=== PATIENT | male | born 1960 | race Two or more races ===

== ENCOUNTER 2024-06-13 11:37 | Emergency (ER) | payer MEDICARE, MEDICAID ==
[~2024-06-13] VITALS: Ht 170.2 cm; Wt 70.0 kg
[2024-06-13 13:02] VITALS: BP 119/68; PULSE 75; RESP 16; TEMP 98.5; O2SAT 97
[2024-06-13] MEDS ORDERED: MECL-302 PO (13:35)
== END 2024-06-13 14:00 | disposition home or self-care (01) ==
LOC: ER 11:38
DX: R42 Dizziness and giddiness (principal)
CPT/HCPCS: 99282

== ENCOUNTER 2024-07-13 05:46 | Emergency (ER) | payer MEDICARE, MEDICAID ==
[~2024-07-13] VITALS: Ht 170.2 cm; Wt 64.2 kg
[~2024-07-13 05:46] MED LIST: MECL-302 PO
[2024-07-13 05:47] VITALS: TEMP 97.3
[2024-07-13] MEDS ORDERED: IBUP-1984 PO (07:12)
[2024-07-13] MEDS ORDERED: TRAM50TA2 PO (07:12)
[2024-07-13 07:28] VITALS: BP 136/87; PULSE 64; RESP 15; O2SAT 97
== END 2024-07-13 07:31 | disposition home or self-care (01) ==
LOC: ER 05:47
DX: M54.2 Cervicalgia (principal); G89.29 Other chronic pain; G43.909 Migraine, unspecified, not intractable, without status migrainosus
CPT/HCPCS: 72040; 99283

== ENCOUNTER 2025-05-24 01:23 | Emergency (ER) | payer MEDICAID, MEDICARE ==
[~2025-05-24] VITALS: Ht 170.2 cm; Wt 65.0 kg
[~2025-05-24 01:23] MED LIST changes: +CARB-491 PO; -MECL-302 PO
[2025-05-24 01:34] VITALS: BP 145/65; PULSE 85; O2SAT 97
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
[2025-05-24 02:41] VITALS: RESP 16
[2025-05-24] MEDS: ketorolac trometh 15mg/ml vial 15 MG/ML ML IM ONE (02:41)
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
[2025-05-24] MEDS ORDERED: IBUP-1984 PO (03:20)
[2025-05-24 03:21] VITALS: TEMP 97.5
== END 2025-05-24 03:22 | disposition home or self-care (01) ==
LOC: ER 01:23
DX: M43.6 Torticollis (principal); Z79.899 Other long term (current) drug therapy
CPT/HCPCS: 72040; 96372; 99283; J1885

== ENCOUNTER 2025-05-31 07:32 | Emergency (ER) | payer MEDICARE ==
[~2025-05-31] VITALS: Ht 170.2 cm; Wt 67.0 kg
[~2025-05-31 07:32] MED LIST changes: +IBUP-1984 PO
[2025-05-31 07:49] VITALS: TEMP 98
--- NOTE | 2025-05-31 07:52 | Physician Documentation ---
History of Present Illness ~ General Chief Complaint: Cold, cough & congestion Stated Complaint: FEVER Time Seen by MD: 07:42 Source: patient Mode of Arrival: EMS History of Present Illness Initial Comments CC: Fever HPI: The patient is a 70-year-old male with history of Parkinson's disease brought in by ambulance to the ED for evaluation of fever and body aches for the past two days. The patient also reports of having a dry cough with no phlegm and dysuria. He took Tylenol a a few hours prior to arrival. Denies any chest pain or shortness of breath. Positive sore throat. No urinary symptoms no abdominal pain. No neck pain or stiffness. Took Tylenol early this morning no foreign travel. No sick contacts. He has a one room he lives with. No diabetes or immunosuppression ROS: Constitutional: Positive for fever and body aches. HENT: Negative for sore throat and rhinorrhea. Eyes: Negative for pain and redness. Respiratory: Positive for cough. Negative for shortness a breath. Cardiovascular: Negative for chest pain and palpitations. Gastrointestinal: Negative for nausea and vomiting. . Genitourinary: Negative for dysuria and hematuria. Musculoskeletal: Negative for acute back pain and acute neck pain. Skin: Negative for rash and pruritus. Neurological: Negative for acute numbness or weakness. PMH: Parkinson's disease Social history: [facility] Medication Reconciliation Allergies: Coded Allergies: No Known Allergies (Unverified , 05/31/25) Scheduled Azithromycin (Zithromax), 1 TAB PO UD Oseltamivir Phosphate (Tamiflu), 1 CAP PO Q12H Past Medical History Smoking Status: Unknown if ever smoked Physical Exam Physical Exam Vital Signs: Temperature: 98.0, Source: Oral, Heart Rate: 83, Respiratory Rate: 16, BP: 130/82, Pulse Oximetry: 94, Weight: 67.000 Oxygen Flow Rate: 0 Physical Exam General: Awake no distress. Verbal Head: No trauma Eyes: Nl lids Nl conjunctiva. No eye discharge ENT: Mild erythema to oropharynx. Nl. Lips Nl. No lesions Neck: Supple. No JVD. No visible mass Resp: Rate normal. No respiratory distress. No retractions. Normal air flow. No wheezes, rhonchi, or rales. Heart: Regular rhythm. No murmur. No rub Abdomen: Soft. Nontender. No guarding. No rebound Musc/skeletal: No calf or popliteal tenderness. No edema Skin: No rash. No petechiae. Not diaphoretic Neuro: Alert, oriented. Normal speech normal gross sensory and motor exams Progress Progress Note Chest x ray interpreted by me: Findings: Normal mediastinum, No pneumothorax, No CM, no infiltrate Impression: Normal EKG: Rate/Rhythm: Normal Sinus Rhythm QRS, ST, T-waves: No changes consistent w/ acute ischemia Impression: No evidence of ischemia or arrhythmia Re-evaluate 915 the patient states he is ready to get out of here. Normal vital signs. Informed of diagnosis plan and indications to return we will prescribe Tamiflu Results/Orders Results/Orders Orders - EARNEST MCCOY MD Electrocardiogram (05/31/25 07:47) Chest,Single View (05/31/25 07:47) Covid19 Binax Poc Result Entry (05/31/25 07:47) Completed Orders - EARNEST MCCOY MD Electrocardiogram (05/31/25 07:47) Cbc/Diff (05/31/25 07:47) Chest,Single View (05/31/25 07:47) BMP (05/31/25 07:47) Normal Saline 1000ml (0.9% Sodium Chlori (05/31/25 07:50) Influenza Type A&B Rapid Test (05/31/25 07:47) Ua W/Microscopic, Cult If Ind (05/31/25 08:28) Ketorolac Trometh 30mg/Ml Vial (Toradol (05/31/25 09:00) Oseltamivir Capsule (Tamiflu Capsule) (05/31/25 09:00) Medications Received in ER Medications (Trade) Dose Ordered Sig/Wayne Route PRN Reason Start Time Stop Time Status Last Admin Dose Admin (0.9% sodium chloride (NS) 1000ml IV soln) 1,000 ml ONCE ONCE IVB 05/31/25 07:50 05/31/25 07:52 DC 05/31/25 08:27 1,000 ML (Toradol inj. 30mg/ml) 15 mg ONCE ONCE IV 05/31/25 09:00 05/31/25 09:02 DC 05/31/25 09:18 15 MG (Tamiflu capsule) 75 mg ONCE ONCE PO 05/31/25 09:00 05/31/25 09:02 DC 05/31/25 09:16 75 MG Vital Signs 05/31/25 05/31/25 05/31/25 05/31/25 07:34 07:49 08:01 09:18 Temp 98.0 98.0 Pulse 89 83 Resp 20 16 17 18 B/P (MAP) 130/82 130/82 (98) Pulse Ox 93 94 O2 Flow Rate 0 0 05/31/25 05/31/25 09:43 09:51 Pulse 79 Resp 19 18 B/P (MAP) 128/87 Pulse Ox 93 Laboratory Tests Test 05/31/25 08:01 05/31/25 08:10 05/31/25 08:28 White Blood Count 5.1 Red Blood Count 5.05 Hemoglobin 14.8 Hematocrit 44.1 Mean Corpuscular Volume 87.3 Mean Corpuscular Hemoglobin 29.4 Mean Corpuscular Hemoglobin Concent 33.6 Red Cell Distribution Width 13.4 Platelet Count 149 Mean Platelet Volume 8.6 Neutrophils (%) (Auto) 64.9 Lymphocytes (%) (Auto) 21.2 Monocytes (%) (Auto) 12.7 H Eosinophils (%) (Auto) 0.8 Basophils (%) (Auto) 0.4 Neutrophils # (Auto) 3.3 Lymphocytes # (Auto) 1.1 Monocytes # (Auto) 0.6 Eosinophils # (Auto) 0.0 Basophils # (Auto) 0.0 CBC Comment Sodium Level 137 Potassium Level 4.1 Chloride Level 103 Carbon Dioxide Level 25.4 Anion Gap 9 Blood Urea Nitrogen 19 H Creatinine 1.00 Estimated GFR/1.73 m2 73 BUN/Creatinine Ratio 19.0 Glucose Level 96 Calcium Level 8.6 Albumin 3.6 Chemistry Comments Influenza Type A Antigen Positive Influenza Type B Antigen Negative SARS-CoV-2 Antigen (Rapid) Negative Urine Specimen Description Urinal Urine Color Yellow Urine Clarity Clear Urine pH 6.0 Urine Specific [place] 1.025 Urine Protein 30 H Urine Glucose (UA) Negative Urine Ketones 15 H Urine Occult Blood Moderate H Urine Nitrite Negative Urine Bilirubin Negative Urine Urobilinogen 1.0 Urine Leukocyte Esterase Negative Urine RBC 20-50 Urine WBC 0-4 Urine Squamous Epithelial Cells Few Urine Bacteria 1+ Urine Culture Indicated Not ind Volume Urine Centrifuged 10 ml Urine Comment EKG/XRAY/CT/US/VASC/MRI Chest X-Ray : Interpreted By: radiologist Views: 1 VIEW Additional Comments CLINICAL HISTORY: SEPSIS TECHNIQUE: Single view of the chest was obtained. COMPARISON: None FINDINGS: The heart size and pulmonary vasculature are normal. There is a patchy right basilar opacity. IMPRESSION: Patchy right basilar opacity, favor atelectasis. Electronically Signed by:KAYLEIGH LIRIANO MD Date & Time: 05/31/25914 Medical Decision Making Additional information obtaine: N/A Findings The patient is a 70-year-old male with history of Parkinson's disease brought in by ambulance to the ED for evaluation of fever and body aches for the past two days. The patient also reports of having a dry cough with no phlegm and dysuria. He took Tylenol a a few hours prior to arrival. Denies any chest pain or shortness of breath. MDM: Limited: (2 points from category 1 or one discussion with independent h istorian). Moderate: one of the following (3 points from category 1, or independent interpretations of tests performed by another physician/QHP: (ct,ecg,rad kristen,rhythm strip,or comparing xray to prior), or discussion of tests or management with other professionals (not including [facility] ER doc/PA or family members.) High: (2 of 3 from : category 1 (3 points), independent interpretation of tests performed by another physician/QHP, and discussion of tests or management). Prior ER notes reviewed: Category 1: Number of Tests ordered or reviewed: 2 Number of Independent Historians: 1 Non [facility] ER notes reviewed: 1. EMS report 2. 3. Category 2: I independently interpreted the: [] Category 3: Discussion with other professionals: [] SOCIAL DETERMINANTS OF HEALTH Problems related to: ( )Challenges with access to Primary Care or Outpatient Speciality Care ( )Psychosocial circumstances such as mental health issues ( )Social environment: such as violence or substance abuse ( )Housing and economic circumstances: such as homelessness ( )Employment and unemployment: such as recently loss of employment ( )Occupational exposures or injuries: ( )Accessing ED outside of normal PCP hours ( )Language barrier: ( )Primary support group, including family circumstances: Prescription Management: Rx strength meds given in ED: Toradol and Tamiflu New Prescriptions: Tamiflu ( )I have reviewed the patient's medications and I do not recommend any changes at this time. (Applies only if checked) Testing or interventions considered: Considered admission the patient wishes to go home no evidence of dehydration pneumonia sepsis Patient very well-appearing prefers to go home no significant vital sign abnormalities he understands the follow up and return instructions Radiology read is possible patchy infiltrate on the right which is extremely subtle this could be peribronchial cuffing versus minimal viral pneumonia less likely bacterial pneumonia. In case it is azithromycin also prescribed. Differential includes but is not limited to: Influenza UTI intra-abdominal infection pneumonia bronchitis strep pharyngitis Differential Diagnosis See MDM Departure Disposition: HOME / SELF CARE / HOMELESS Impression: Primary Impression: Influenza Condition: Stable Additional Instructions: Take Tamiflu as directed Tamiflu that can have side effects including nausea or headaches. Return for any difficulty breathing, dehydration, worsening symptoms, or concerns. Follow up with the regular doctor in 2-3 days. Referrals: NO PRIMARY CARE PROVIDER (PCP) Prescriptions Azithromycin (Zithromax) 250 Mg Tablet 1 TAB PO UD for 5 Days, #6 TAB 2 the first day followed by 1 for days 2-5 Prov: EARNEST MCCOY MD 05/31/25 Oseltamivir Phosphate (TAMIFLU) 75 Mg Capsule 1 CAP PO Q12H for 5 Days, #10 CAP Prov: EARNEST MCCOY MD 05/31/25 Education Educated: Patient Educated regarding: diagnosis, treatment, prognosis, need for follow up Signature Scribe Signature: Scribed for Earnest Mccoy MD by Karen Barreto . 05/31/25 08:26 Attestation: Scribed for Earnest Mccoy MD by Earnest Mccoy. 05/31/2025 0826 EARNEST MCCOY MD May 31, 2025 07:52 KAREN JONES May 31, 2025 08:32
--- NOTE | 2025-05-31 07:57 | ELECTROCARDIOGRAPH REPORT ---
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 Dae De La Cruz Measurements Intervals Epes Rate: 87 P: 49 TX: 169 QRS: 56 QRSD: 87 T: 68 QT: 334 QTc: 402 Interpretive Statements Sinus rhythm Electronically Signed On 05-31-2025 8:15:[address] Dae De La Cruz Please click the below link to view image of tracing.
[2025-05-31 08:24] LABS: MEAN PLATELET VOLUME 8.6 FL (7.4-10.4); RED CELL DISTRIBUTION WIDTH 13.4 % (11.5-14.5)
[2025-05-31] MEDS: normal saline 1000ML IV soln IVB ONE (08:27)
[2025-05-31 08:30] LABS: CREATININE 1.00 MG/DL (0.60-1.10); TOTAL CARBON DIOXIDE 25.4 MMOL/L (24-32); eCRCL 62 ML/MIN; eGFR 73 ML/MIN
[2025-05-31 08:46] LABS: LEUKOCYTE ESTERASE ,URINE NEGATIVE (Neg); NITRITES, URINE NEGATIVE (Neg); OCCULT BLOOD,URINE MODERATE (Neg)
[2025-05-31 08:48] LABS: UA COLLECTION TYPE URINAL
[2025-05-31 08:53] LABS: INFLUENZA TYPE B ANTIGEN RAPID NEGATIVE (Negative)
[2025-05-31 08:58] LABS: INFLUENZA TYPE A ANTIGEN RAPID POSITIVE (Negative)
[2025-05-31 08:59] LABS: SQUAMOUS EPITHELIAL CELL,UR FEW /LPF (FEW)
[2025-05-31] MEDS: oseltamivir phos 75mg capsule PO ONE (09:16)
--- NOTE | 2025-05-31 09:17 | RADIOLOGY REPORT ---
CLINICAL HISTORY: SEPSIS TECHNIQUE: Single view of the chest was obtained. COMPARISON: None FINDINGS: The heart size and pulmonary vasculature are normal. There is a patchy right basilar opacity. IMPRESSION: Patchy right basilar opacity, favor atelectasis.
[2025-05-31] MEDS: ketorolac trometh 30MG/ML vial 30 MG/ML VIAL IV ONE (09:18)
[2025-05-31] MEDS ORDERED: TAM75C PO (09:27)
[2025-05-31] MEDS ORDERED: AZIT250T89 PO (09:27)
[2025-05-31 09:51] VITALS: BP 128/87; PULSE 79; RESP 18; O2SAT 93
== END 2025-05-31 09:54 | disposition home or self-care (01) ==
LOC: ER 07:33 → MERGE 07:33 → EDBD 07:33 → ER 09:54
DX: J11.1 Influenza due to unidentified influenza virus with other respiratory manifestations (principal); Z79.899 Other long term (current) drug therapy; Z20.822 Contact with and (suspected) exposure to COVID-19
CPT/HCPCS: 36415; 71045; 80048; 81001; 85025; 87804; 87811; 93005; 96361; 96374; 99285; J1885; J7030